=== PATIENT | male | born 1995 | race Caucasian/White ===

== ENCOUNTER 2016-09-10 11:30 | Emergency (ER) | payer OTHER ==
[~2016-09-10] VITALS: Ht 180.3 cm; Wt 111.1 kg
[2016-09-10 12:50] VITALS: BP 136/80
== END 2016-09-10 12:50 | disposition home or self-care (01) ==
LOC: ED 11:30
DX: S93.431A Sprain of tibiofibular ligament of right ankle, initial encounter (principal); E78.00 Pure hypercholesterolemia, unspecified; X50.1XXA Overexertion from prolonged static or awkward postures, initial encounter; Y93.89 Activity, other specified; Y99.8 Other external cause status; Y92.89 Other specified places as the place of occurrence of the external cause